=== PATIENT | male | born 1965 | race Caucasian/White ===

== ENCOUNTER 2020-08-10 15:33 | Emergency (ER) | payer MEDICARE ==
[~2020-08-10 15:33] MED LIST: FLOMAX0.4 MG PO; NORCO 5-325 TA1 EACH PO; ZOFRAN4 MG PO
[2020-08-10 16:40] LABS: BASOPHIL 0.7 % (0-2); HCT 45.7 % (42.0-52.0); HGB 15.7 g/dl (13.2-18.0); LYMPHOCYTE 30.4 % (15-48); MCH 30.8 pg (25.0-31.0); MCHC 34.4 g/dL (32.0-36.0); MCV 89.8 fL (78.0-100.0); MONOCYTE 10.4 % (0-12); MPV 10.1 fL (6.0-9.5); NEUTROPHIL 54.1 % (41-80); NRBC 0; PLT 206 K/uL (150-400); RBC 5.09 M/uL (4.70-6.00); RDW 12.8 % (11.5-14.0)
[2020-08-10 16:57] LABS: ALBUMIN 3.4 g/dL (3.4-5.0); BILIRUBIN - TOTAL 0.2 mg/dL (0.2-1.0); BUN/CREAT RATIO (CALC) 18.4 RATIO; CREATININE 0.87 mg/dL (0.67-1.17); GLOBULIN (CALCULATION) 3.6 g/dL; POTASSIUM 4.1 mmol/L (3.5-5.1)
[2020-08-10] MEDS ORDERED: ZYRTEC10 M3 PO (17:16)
[2020-08-10] MEDS ORDERED: AUGMENTIN 875-1 EACH PO (17:16)
== END 2020-08-10 17:55 | disposition home or self-care (01) ==
LOC: FER 15:33
PROVIDERS: Emergency Medicine
DX: H00.031 Abscess of right upper eyelid (principal); M79.601 Pain in right arm; I45.2 Bifascicular block; E11.9 Type 2 diabetes mellitus without complications; I10 Essential (primary) hypertension; E78.5 Hyperlipidemia, unspecified; E66.9 Obesity, unspecified; Z79.82 Long term (current) use of aspirin
CPT/HCPCS: 36415; 70450; 71045; 80053; 84484; 85025; 93005

== ENCOUNTER 2021-06-24 23:32 | Inpatient (IN) | payer MEDICARE, OTHER ==
[~2021-06-24] VITALS: Ht 182.9 cm; Wt 131.6 kg
[~2021-06-24 23:32] MED LIST changes: +AUGMENTIN 875-1 EACH PO; +ZYRTEC10 M3 PO
[2021-06-25 03:18] LABS: BASOPHIL 0.5 % (0-2); EOSINOPHIL 1.6 % (0-5); HCT 46.9 % (42.0-52.0); HGB 16.1 g/dl (13.2-18.0); LYMPHOCYTE 33.1 % (15-48); MCH 30.4 pg (25.0-31.0); MCHC 34.3 g/dL (32.0-36.0); MCV 88.5 fL (78.0-100.0); MONOCYTE 11.2 % (0-12); MPV 10.2 fL (6.0-9.5); NEUTROPHIL 52.6 % (41-80); NRBC 0; PLT 161 K/uL (150-400); RDW 13.4 % (11.5-14.0); WBC 6.3 K/uL (4.0-10.5)
[2021-06-25 03:28] LABS: ALBUMIN 3.5 g/dL (3.4-5.0); BILIRUBIN - TOTAL 0.2 mg/dL (0.2-1.0); BUN/CREAT RATIO (CALC) 14.7 RATIO; CREATININE 1.02 mg/dL (0.67-1.17); GLOBULIN (CALCULATION) 3.8 g/dL; POTASSIUM 3.4 mmol/L (3.5-5.1); TOTAL PROTEIN 7.3 g/dL (6.4-8.2)
[2021-06-25 03:42] LABS: INFLUENZA A NAA NEGATIVE (NEGATIVE)
[2021-06-25 03:43] LABS: CORONAVIRUS 2019 SARS-COV-2 POSITIVE (NEGATIVE)
[2021-06-25] MEDS ORDERED: MEDROL 4MG DOSEP4 MG PO (04:47)
[2021-06-25] MEDS ORDERED: ZPAK PO (04:47)
[2021-06-25] MEDS ORDERED: ONDANSETRON ODT4 MG PO (04:47)
[2021-06-25 09:51] LABS: INR 0.94 (0.9-1.2)
[2021-06-25] MEDS ORDERED: CELEXA20 MG PO (14:35)
[2021-06-25] MEDS ORDERED: METFORMIN HCL500 MG PO (14:35)
[2021-06-25] MEDS ORDERED: NEURONTIN300 MG PO (14:36)
[2021-06-25] MEDS ORDERED: LISINOPRIL20 MG PO (14:36)
[2021-06-25] MEDS ORDERED: GABAPENTIN600 MG PO (14:37)
[2021-06-25] MEDS ORDERED: LOVASTATIN20 MG PO (14:37)
[2021-06-25] MEDS ORDERED: GLUCOTROL10 MG PO (14:37)
[2021-06-25] MEDS ORDERED: BUSPAR5 MG PO (14:38)
[2021-06-25] MEDS ORDERED: MOBIC7.5 MG PO (14:38)
[2021-06-25] MEDS ORDERED: ASPIRIN EC81 MG PO (14:39)
[2021-06-25] MEDS ORDERED: VENTOLIN HFA18 GM INH (14:40)
[2021-06-25] MEDS ORDERED: SUDAFED 24-HOU240 MG PO (14:40)
[2021-06-25 16:24] LABS: INR 1.06 (0.9-1.2); PROTHROMBIN TIME 13.2 SECONDS (11.8-13.4)
[2021-06-26 06:59] LABS: BASOPHIL 0.2 % (0-2); EOSINOPHIL 0 % (0-5); HCT 44.3 % (42.0-52.0); HGB 14.9 g/dl (13.2-18.0); LYMPHOCYTE 17.4 % (15-48); MCHC 33.6 g/dL (32.0-36.0); MCV 89.1 fL (78.0-100.0); MONOCYTE 6.4 % (0-12); MPV 10.6 fL (6.0-9.5); NEUTROPHIL 75.8 % (41-80); NRBC 0; PLT 162 K/uL (150-400); RBC 4.97 M/uL (4.70-6.00); RDW 13.3 % (11.5-14.0); WBC 5.8 K/uL (4.0-10.5)
[2021-06-26 07:09] LABS: INR 1.06 (0.9-1.2); PROTHROMBIN TIME 13.2 SECONDS (11.8-13.4)
[2021-06-26 07:17] LABS: PTT 65.6 SECONDS (24.4-34.7)
[2021-06-26 07:23] LABS: BILIRUBIN - TOTAL 0.4 mg/dL (0.2-1.0); BUN/CREAT RATIO (CALC) 21.6 RATIO; CREATININE 0.88 mg/dL (0.67-1.17); GLOBULIN (CALCULATION) 3.8 g/dL; MAGNESIUM 2.2 mg/dL (1.8-2.4); POTASSIUM 4.3 mmol/L (3.5-5.1); TOTAL PROTEIN 6.8 g/dL (6.4-8.2)
--- NOTE | 2021-06-27 10:20 | NUR ---
06/27/21 Mr. Henriquez's son and the son's girlfriend live in the home. Mr. Henriquez was independent in the home and community prior to admission. He is supported by [facility] and [employer]. Mr. Henriquez utilizes [employer] for financial assistance with water and electric.
--- NOTE | 2021-06-27 14:29 | NUR ---
1344 NOTIFED FROM LAB OF THE PANIC PTT 70.9, PATIENT ON A HEPARIN DRIP AT 15.1ML/HR. 70.9 IS IN THE NO CHANGE RANGE AND DR. FLETCHER WAS NOTIFED ALSO, NEW ORDER FOR A PTT AT 1300 ON 06/28/21. WILL MONOTR FOR CHANGES
--- NOTE | 2021-06-28 01:57 | NUR ---
NURSE D/C'D HEPARIN DRIP AT 23:27 ON 06/27/[address] ORDERS TO D/C 2 HRS AFTER LOVENOX WAS GIVEN
[2021-06-28 07:13] LABS: BASOPHIL 0.1 % (0-2); EOSINOPHIL 0.1 % (0-5); HCT 41.7 % (42.0-52.0); LYMPHOCYTE 18.4 % (15-48); MCH 30.2 pg (25.0-31.0); MCHC 33.6 g/dL (32.0-36.0); MCV 90.1 fL (78.0-100.0); MONOCYTE 7.4 % (0-12); MPV 10.8 fL (6.0-9.5); NEUTROPHIL 72.9 % (41-80); NRBC 0; PLT 170 K/uL (150-400); RBC 4.63 M/uL (4.70-6.00); RDW 13.4 % (11.5-14.0); WBC 11.2 K/uL (4.0-10.5)
[2021-06-28 07:16] LABS: PROTHROMBIN TIME 12.6 SECONDS (11.8-13.4)
[2021-06-28 07:39] LABS: BUN/CREAT RATIO (CALC) 24.1 RATIO; CREATININE 0.87 mg/dL (0.67-1.17); POTASSIUM 4.5 mmol/L (3.5-5.1)
[2021-06-28] MEDS ORDERED: ELIQUIS5 MG PO (13:32)
--- NOTE | 2021-06-28 15:39 | NUR ---
06/28/21 Teetee Henriquez was informed, Eliquis co-pay will be $9.85 per [facility].
[2021-06-29] MEDS ORDERED: VENTOLIN HFA18 GM INH (09:02)
[2021-06-29] MEDS ORDERED: ROBITUSSIN100 MG/5 M PO (09:09)
== END 2021-06-29 11:50 | disposition home or self-care (01) | DRG 177 ==
LOC: FER 23:32 → FICU 06-25 08:40 → FMS 06-25 08:40 → FICU 06-25 13:41 → FMS 06-26 09:17
PROVIDERS: Emergency Medicine; Internal Medicine; ADMIT Internal Medicine
PROC: 3E0333Z Introduction of Anti-inflammatory into Peripheral Vein, Percutaneous Approach (ICD-10-PCS; principal; 2021-06-25)
PROC: 8E0ZXY6 Isolation (ICD-10-PCS; 2021-06-25)
PROC: 05HY33Z Insertion of Infusion Device into Upper Vein, Percutaneous Approach (ICD-10-PCS; 2021-06-25)
DX: U07.1 COVID-19 (principal); I26.99 Other pulmonary embolism without acute cor pulmonale; I82.4Z1 Acute embolism and thrombosis of unspecified deep veins of right distal lower extremity; E11.9 Type 2 diabetes mellitus without complications; T38.0X5A Adverse effect of glucocorticoids and synthetic analogues, initial encounter; I10 Essential (primary) hypertension; E78.5 Hyperlipidemia, unspecified; F41.9 Anxiety disorder, unspecified; Z82.49 Family history of ischemic heart disease and other diseases of the circulatory system; Z79.84 Long term (current) use of oral hypoglycemic drugs
CPT/HCPCS: 36415; 36600; 71045; 71275; 80048; 80053; 82803; 82962; 83735; 83880; 84145; 84484; 85025; 85379; 85610; 85730; 93005; 93970; 94010; 94640; C1751; J1100; J1644; J1650; J1885; J2405; J7030; J7060; Q9967; U0002